=== PATIENT | female | born 1980 ===

== ENCOUNTER 2021-04-02 12:23 | Emergency (ER) | payer SELFPAY ==
[~2021-04-02] VITALS: Ht 160 cm; Wt 65.3 kg
[2021-04-02] MEDS ORDERED: methylPREDNISolone SOD SUCC 125 MG/2 ML VL IV ONE (12:30)
[2021-04-02 13:21] VITALS: BP 105/74
== END 2021-04-02 17:16 | disposition left against medical advice (07) ==
LOC: ER 12:23
DX: U07.1 COVID-19 (principal); Z90.49 Acquired absence of other specified parts of digestive tract